=== PATIENT | female | born 1965 | race Caucasian/White ===

== ENCOUNTER → 2016-11-03 | Outpatient (REF) | payer OTHER ==
[~2016-11-03] MED LIST: ACET500C OR; ALENDRONATE PO; CALCCHW12 OR; ESTR625TA OR; FEROCON PO; FERR325T OR; NAPR500T OR; OMEP20TA7 OR; TRAM50TA2 OR; VITA100T OR; potassium PO; vitamin d-3 PO
[2016-11-03 17:18] LABS: PERCENT SATURATION 24.4 % (13.2-37.4)
== END ==
LOC: M LAB REF 16:33
PROVIDERS: ATTEND Internal Medicine
DX: D51.9 Vitamin B12 deficiency anemia, unspecified (principal); D50.9 Iron deficiency anemia, unspecified; Z98.84 Bariatric surgery status

== ENCOUNTER → 2016-11-17 | Outpatient (REF) | payer OTHER | LOC: M LAB REF 16:39 | PROVIDERS: ATTEND Surgery | DX: J02.9 Acute pharyngitis, unspecified (principal) ==

== ENCOUNTER 2018-01-15 14:25 | Inpatient (IN) | payer OTHER ==
[2018-01-15] MEDS: NS 1,000 ML IV ×2 (15:15→17:55)
[2018-01-15 15:27] LABS: BASO % 0.3 % (0.0-1.0); EOS # 0.2 10^3/uL (0.0-0.50); EOS % 1.8 % (0.0-3.0); HEMATOCRIT 42.1 % (36.0-47.0); IMMATURE GRANULOCYTE % 0.3 % (0-3.0); LYMPH # 1.8 10^3/uL (1.5-4.5); LYMPH % 18.5 % (24.0-44.0); MEAN CORPUSCULAR HEMOGLOBIN 31.3 pg (27.0-33.0); MEAN CORPUSCULAR HGB CONC 33.3 g/dl (32.0-36.5); MONO # 0.5 10^3/uL (0.0-0.8); MONO % 5.1 % (0.0-5.0); PLATELET COUNT, AUTOMATED 289 10^3/uL (150-450); RED BLOOD COUNT 4.48 10^6/uL (4.00-5.40); RED CELL DISTRIBUTION WIDTH 12.8 % (11.5-14.5); WHITE BLOOD COUNT 9.4 10^3/uL (4.0-10.0)
[2018-01-15] MEDS: MORPHINE 4 MG/ML 1ML VIAL/SYRINGE (J2270) IV ×3 (15:34→16:54)
[2018-01-15] MEDS: ONDANSETRON 4MG/2ML VIAL (J2405) IV (15:34)
[2018-01-15 15:38] LABS: INR 0.88; PARTIAL THROMBOPLASTIN TIME 29.1 SECONDS (25.4-37.6)
[2018-01-15 15:44] LABS: CONTROL LINE HCG INT CTR LINE PRESENT; HCG, SERUM QUALITATIVE NEGATIVE (NEGATIVE)
[2018-01-15 15:54] LABS: ALBUMIN 3.4 GM/DL (3.2-5.2); ALBUMIN/GLOBULIN RATIO 1.06 (1.00-1.93); ALKALINE PHOSPHATASE 52 U/L (45-117); ALT/SGPT 29 U/L (12-78); ANION GAP 10 MEQ/L (8-16); AST/SGOT 33 U/L (7-37); BILIRUBIN,DIRECT 0.1 MG/DL (0.0-0.2); BILIRUBIN,TOTAL 0.3 MG/DL (0.2-1.0); BLOOD UREA NITROGEN 23 MG/DL (7-18); CARBON DIOXIDE LEVEL 25 MEQ/L (21-32); CHLORIDE LEVEL 107 MEQ/L (98-107); CPK CREATINE PHOSPHOKINASE 50 U/L (26-192); CREATININE FOR GFR 0.65 MG/DL (0.55-1.30); GLOMERULAR FILTRATION RATE > 60.0 (>51); GLUCOSE, FASTING 113 MG/DL (70-100); LIPASE 833 U/L (73-393); POTASSIUM SERUM 4.1 MEQ/L (3.5-5.1); SODIUM LEVEL 142 MEQ/L (136-145); TOTAL PROTEIN 6.6 GM/DL (6.4-8.2); TROPONIN I < 0.02 NG/ML (< 0.10)
[2018-01-15 15:55] LABS: CK-MB VALUE MASS < 1.0 NG/ML (<3.6)
[2018-01-15] MEDS ORDERED: ISOVUE-370 76% 100ML VIAL (Q9967) As Ordered (15:57)
[2018-01-15] MEDS ORDERED: ASPIRIN 81 MG CHEW TABLET As Ordered (16:00)
[2018-01-15] MEDS: NITROGLYCERIN 0.4 MG SUBL TABLET SL (16:03)
[2018-01-15] MEDS: ASPIRIN 81 MG CHEW TABLET PO (16:04)
[2018-01-15] MEDS: LORazepam 2 MG/ML VIAL (J2060) IV (16:31)
[2018-01-15] MEDS: PIPERACILLIN/TAZOBACTAM SOD 3.375 GM in D5W MINI-BAG PLUS 50 ML IV ×2 (16:55→22:48)
[2018-01-15 18:11] LABS: LACTIC ACID SEPSIS PROTOCOL 1.3 MMOL/L (0.4-2.0)
[2018-01-15] MEDS: LR 1,000 ML IV (19:13)
[2018-01-15] MEDS: KETOROLAC 30 MG/ML VIAL (J1885) IV (19:22)
[2018-01-15] MEDS: HEPARIN SOD (PORCINE) 5000 UNITS/ML VIAL SC (21:33)
[2018-01-15] MEDS: PANTOPRAZOLE 40MG INJ (PROTONIX) (C9113) IV (21:33)
[2018-01-16] MEDS: KETOROLAC 30 MG/ML VIAL (J1885) IV ×3 (03:04→15:33)
[2018-01-16] MEDS: LR 1,000 ML IV ×3 (04:00→16:37)
[2018-01-16] MEDS: HEPARIN SOD (PORCINE) 5000 UNITS/ML VIAL SC ×3 (05:39→22:02)
[2018-01-16] MEDS: PIPERACILLIN/TAZOBACTAM SOD 3.375 GM in D5W MINI-BAG PLUS 50 ML IV ×4 (05:39→21:53)
[2018-01-16 06:20] LABS: HEMATOCRIT 36.2 % (36.0-47.0); MEAN CORPUSCULAR HEMOGLOBIN 31.7 pg (27.0-33.0); MEAN CORPUSCULAR HGB CONC 32.6 g/dl (32.0-36.5); MEAN CORPUSCULAR VOLUME 97.3 fl (80.0-96.0); PLATELET COUNT, AUTOMATED 224 10^3/uL (150-450); RED BLOOD COUNT 3.72 10^6/uL (4.00-5.40); RED CELL DISTRIBUTION WIDTH 13.1 % (11.5-14.5); WHITE BLOOD COUNT 6.9 10^3/uL (4.0-10.0)
[2018-01-16 06:43] LABS: HEMOGLOBIN 11.8 g/dl (12.0-15.5)
[2018-01-16 06:53] LABS: ANION GAP 6 MEQ/L (8-16); BLOOD UREA NITROGEN 18 MG/DL (7-18); CALCIUM LEVEL 7.7 MG/DL (8.5-10.1); CARBON DIOXIDE LEVEL 30 MEQ/L (21-32); CHLORIDE LEVEL 109 MEQ/L (98-107); CREATININE FOR GFR 0.62 MG/DL (0.55-1.30); GLOMERULAR FILTRATION RATE > 60.0 (>51); GLUCOSE, FASTING 104 MG/DL (70-100); MAGNESIUM LEVEL 1.9 MG/DL (1.8-2.4); POTASSIUM SERUM 4.4 MEQ/L (3.5-5.1); SODIUM LEVEL 145 MEQ/L (136-145)
[2018-01-16] MEDS: PANTOPRAZOLE 40MG INJ (PROTONIX) (C9113) IV ×2 (09:31→21:53)
[2018-01-16] MEDS: ONDANSETRON 4MG/2ML VIAL (J2405) IV (23:21)
[2018-01-16] MEDS: MORPHINE 4 MG/ML 1ML VIAL/SYRINGE (J2270) IV (23:21)
[2018-01-17] MEDS: LR 1,000 ML IV ×3 (04:00→18:56)
[2018-01-17] MEDS: ONDANSETRON 4MG/2ML VIAL (J2405) IV (05:06)
[2018-01-17] MEDS: MORPHINE 4 MG/ML 1ML VIAL/SYRINGE (J2270) IV (05:07)
[2018-01-17] MEDS: PIPERACILLIN/TAZOBACTAM SOD 3.375 GM in D5W MINI-BAG PLUS 50 ML IV ×4 (05:08→23:18)
[2018-01-17] MEDS: HEPARIN SOD (PORCINE) 5000 UNITS/ML VIAL SC ×3 (05:27→22:00)
[2018-01-17 06:12] LABS: HEMATOCRIT 35.2 % (36.0-47.0); HEMOGLOBIN 11.5 g/dl (12.0-15.5); MEAN CORPUSCULAR HEMOGLOBIN 31.6 pg (27.0-33.0); MEAN CORPUSCULAR HGB CONC 32.7 g/dl (32.0-36.5); MEAN CORPUSCULAR VOLUME 96.7 fl (80.0-96.0); PLATELET COUNT, AUTOMATED 203 10^3/uL (150-450); RED BLOOD COUNT 3.64 10^6/uL (4.00-5.40); RED CELL DISTRIBUTION WIDTH 12.9 % (11.5-14.5)
[2018-01-17 06:32] LABS: ANION GAP 9 MEQ/L (8-16); BLOOD UREA NITROGEN 17 MG/DL (7-18); CALCIUM LEVEL 7.9 MG/DL (8.5-10.1); CARBON DIOXIDE LEVEL 27 MEQ/L (21-32); CHLORIDE LEVEL 107 MEQ/L (98-107); CREATININE FOR GFR 0.51 MG/DL (0.55-1.30); GLOMERULAR FILTRATION RATE > 60.0 (>51); GLUCOSE, FASTING 71 MG/DL (70-100); MAGNESIUM LEVEL 1.8 MG/DL (1.8-2.4); POTASSIUM SERUM 3.6 MEQ/L (3.5-5.1); SODIUM LEVEL 143 MEQ/L (136-145)
[2018-01-17] MEDS: PANTOPRAZOLE 40MG INJ (PROTONIX) (C9113) IV ×2 (09:07→20:58)
[2018-01-17] MEDS: ACETAMINOPHEN TAB 650MG DOSE (2X325MG) PO (09:33)
[2018-01-17] MEDS: SUCRALFATE SUSP 1GM/10ML UD PO ×3 (11:17→23:18)
[2018-01-18] MEDS: PIPERACILLIN/TAZOBACTAM SOD 3.375 GM in D5W MINI-BAG PLUS 50 ML IV (06:40)
[2018-01-18] MEDS: HEPARIN SOD (PORCINE) 5000 UNITS/ML VIAL SC (06:45)
[2018-01-18] MEDS: SUCRALFATE SUSP 1GM/10ML UD PO (06:53)
[2018-01-18 07:27] LABS: HEMATOCRIT 35.7 % (36.0-47.0); HEMOGLOBIN 11.6 g/dl (12.0-15.5); MEAN CORPUSCULAR HEMOGLOBIN 30.6 pg (27.0-33.0); MEAN CORPUSCULAR HGB CONC 32.5 g/dl (32.0-36.5); MEAN CORPUSCULAR VOLUME 94.2 fl (80.0-96.0); PLATELET COUNT, AUTOMATED 242 10^3/uL (150-450); RED BLOOD COUNT 3.79 10^6/uL (4.00-5.40); RED CELL DISTRIBUTION WIDTH 12.3 % (11.5-14.5); WHITE BLOOD COUNT 3.7 10^3/uL (4.0-10.0)
[2018-01-18 07:49] LABS: ANION GAP 10 MEQ/L (8-16); BLOOD UREA NITROGEN 10 MG/DL (7-18); CALCIUM LEVEL 8.3 MG/DL (8.5-10.1); CARBON DIOXIDE LEVEL 25 MEQ/L (21-32); CHLORIDE LEVEL 109 MEQ/L (98-107); CREATININE FOR GFR 0.49 MG/DL (0.55-1.30); GLOMERULAR FILTRATION RATE > 60.0 (>51); GLUCOSE, FASTING 63 MG/DL (70-100); MAGNESIUM LEVEL 1.8 MG/DL (1.8-2.4); POTASSIUM SERUM 3.9 MEQ/L (3.5-5.1); SODIUM LEVEL 144 MEQ/L (136-145)
== END 2018-01-18 10:30 | disposition home or self-care (01) | DRG 392 ==
LOC: M ED 14:25 → M ED INP 18:57 → M PED 20:35
DX: K22.5 Diverticulum of esophagus, acquired (principal); N20.0 Calculus of kidney; F32.9 Major depressive disorder, single episode, unspecified; M54.2 Cervicalgia; Z98.84 Bariatric surgery status

== ENCOUNTER 2018-02-24 11:37 | Day surgery (SDC) | payer OTHER ==
[2018-02-24] MEDS ORDERED: NS 1,000 ML IV (12:30)
[2018-02-24] MEDS ORDERED: LIDOCAINE 2% INJ 100 MG/5 ML SDV (FOR ANES.) As Ordered (12:31)
[2018-02-24] MEDS ORDERED: PROPOFOL 500 MG/50 ML VIAL As Ordered (12:31)
[2018-02-24] MEDS ORDERED: fentaNYL 100 MCG/2 ML INJECTION (J3010) As Ordered (12:31)
== END 2018-02-24 13:02 | disposition home or self-care (01) ==
LOC: M OPP 11:37
DX: K25.1 Acute gastric ulcer with perforation (principal); Z98.0 Intestinal bypass and anastomosis status; Z87.11 Personal history of peptic ulcer disease; I95.9 Hypotension, unspecified; Z98.84 Bariatric surgery status; D64.9 Anemia, unspecified; M19.90 Unspecified osteoarthritis, unspecified site; M25.78 Osteophyte, vertebrae; M54.89 Other dorsalgia; M54.2 Cervicalgia; F41.9 Anxiety disorder, unspecified; F32.9 Major depressive disorder, single episode, unspecified; K21.9 Gastro-esophageal reflux disease without esophagitis; R51 Headache; N83.209 Unspecified ovarian cyst, unspecified side; Z87.442 Personal history of urinary calculi; Z86.39 Personal history of other endocrine, nutritional and metabolic disease; Z79.899 Other long term (current) drug therapy; Z80.0 Family history of malignant neoplasm of digestive organs; Z80.8 Family history of malignant neoplasm of other organs or systems; Z80.1 Family history of malignant neoplasm of trachea, bronchus and lung
CPT/HCPCS: 43239

== ENCOUNTER → 2018-03-01 | Outpatient (REF) | payer OTHER ==
[2018-03-01 13:39] LABS: VITAMIN B12 LEVEL 524 PG/ML (247-911)
[2018-03-01 15:26] LABS: FERRITIN 94 NG/ML (8-252); IRON (FE) 85 UG/DL (50-170); PERCENT SATURATION 24.4 % (13.2-45.0); TOTAL IRON BINDING CAPACITY 348 UG/DL (250-450)
== END ==
LOC: M LAB REF 12:16
DX: D50.9 Iron deficiency anemia, unspecified (principal); D51.9 Vitamin B12 deficiency anemia, unspecified

== ENCOUNTER → 2018-08-17 | Outpatient (REF) | payer OTHER ==
[~2018-08-17] MED LIST changes: +AMIT25TA PO; +BAYETAB2 PO; +CALCTAB68 PO; +DULO30CA PO; +ESTR2TAB2 PO; +FEROCAP3 PO; +GABA-843 PO; +IRON27TA2 PO; +MIDO5TA PO; +MOBI4TAB PO; +MULTCAP PO; +OMEP40CA2 PO; +POTA99TA PO; +PREG100CA PO; +SUCR1TA PO; +TYLE500T78 PO; +VITA10002 PO; +VITA100066 PO; +VITA250L PO
[2018-08-18 14:53] LABS: ANTINUCLEAR ANTIBODIES DIRECT Negative (Negative)
== END ==
LOC: M LAB REF 12:28
PROVIDERS: ATTEND Internal Medicine
DX: M25.50 Pain in unspecified joint (principal)

== ENCOUNTER → 2019-01-07 | Outpatient (CLI) | payer OTHER ==
[~2019-01-07] MED LIST changes: -DULO30CA PO; +DULO30CA9 PO
--- NOTE | 2019-01-07 14:31 | REP ---
Whole body radionuclide bone scan: The studies performed after intravenous infusion of MDP radiolabeled with 20.2 mCi of technetium 99m. Whole body anterior posterior images are performed. Additionally magnified images of the ribs and pelvis are performed and oblique projections and lateral views of the calvarium are performed and oblique projections. Lateral views of the lower extremities are performed. In addition, a posterior view of the lumbar spine, sacrum and coccyx is performed after bladder emptying. There is focal increased uptake in the tarsal ossicles bilaterally, likely degenerative. Radiotracer distribution is otherwise unremarkable. No other focal areas of increased uptake are identified. There is no evidence of a focal increased uptake in the sacrum or coccyx. Impression: No evidence of increased uptake in the sacrum or coccyx. Increased uptake in the tarsal ossicles bilaterally, likely degenerative. Electronically Signed by Ronny Foley MD 01/07/2019 02:23 P
== END ==
LOC: M RAD 09:21
PROVIDERS: ATTEND Orthopaedic Surgery Orthopaedic Surgery of the Spine
DX: Z13.820 Encounter for screening for osteoporosis (principal)
CPT/HCPCS: 78306; A9503

== ENCOUNTER → 2019-01-14 | Outpatient (REF) | payer OTHER ==
[2019-01-14 18:03] LABS: APPEARANCE, URINE HAZY (CLEAR); BACTERIA, URINE AUTO NEGATIVE (NEGATIVE); BILIRUBIN, URINE AUTO NEGATIVE (NEGATIVE); BLOOD, URINE BLOOD 1+ (NEGATIVE); CALCIUM OXALATE CRYSTALS LARGE; COLOR, URINE YELLOW (YELLOW); GLUCOSE, URINE (UA) AUTO NEGATIVE (NEGATIVE); KETONE, URINE AUTO NEGATIVE (NEGATIVE); LEUKOCYTE ESTERASE, URINE AUTO NEGATIVE (NEGATIVE); MUCUS, URINE SMALL (NEGATIVE); NITRITE, URINE AUTO NEGATIVE (NEGATIVE); PROTEIN, URINE AUTO NEGATIVE (NEGATIVE); RBC, URINE AUTO 9 /HPF (0-3); SQUAMOUS EPITHELIAL CELL UR AU 0 /HPF (0-6); UROBILINOGEN, URINE AUTO 0.2 mg/dL (0.0-2.0); WBC, URINE AUTO 0 /HPF (0-3)
== END ==
LOC: M LAB REF 16:23
PROVIDERS: ATTEND Internal Medicine
DX: Z01.818 Encounter for other preprocedural examination (principal)

== ENCOUNTER → 2019-02-24 | Outpatient (REF) | payer OTHER ==
[~2019-02-24] MED LIST changes: +CYAN100049 PO; -VITA10002 PO
[2019-02-24 22:19] LABS: BASO # 0.1 10^3/uL (0.0-0.2); EOS # 0.1 10^3/uL (0.0-0.50); EOS % 2.1 % (0.0-3.0); HEMATOCRIT 40.6 % (36.0-47.0); HEMOGLOBIN 13.3 g/dl (12.0-15.5); LYMPH # 1.4 10^3/uL (1.5-4.5); MEAN CORPUSCULAR HEMOGLOBIN 32.8 pg (27.0-33.0); MEAN CORPUSCULAR HGB CONC 32.8 g/dl (32.0-36.5); MONO # 0.6 10^3/uL (0.0-0.8); MONO % 11.3 % (0.0-5.0); NEUTROPHILS # 2.7 10^3/uL (1.8-7.7); NEUTROPHILS % 55.8 % (36.0-66.0); PLATELET COUNT, AUTOMATED 280 10^3/uL (150-450); RED BLOOD COUNT 4.06 10^6/uL (4.00-5.40); WHITE BLOOD COUNT 4.9 10^3/uL (4.0-10.0)
[2019-02-24 22:22] LABS: MONO SCRN NEGATIVE (NEGATIVE)
[2019-02-24 22:40] LABS: THYROID STIMULATING HORMONE 0.742 uIU/ML (0.358-3.740); TOTAL 25(OH) VITAMIN D 32.1 NG/ML (30.0-100.0)
[2019-02-27 00:06] LABS: Lyme Disease IgG/IgM Antibodie <0.91 ISR (0.00-0.90); Lyme Disease IgM Ab Quantitati <0.80 index (0.00-0.79)
== END ==
LOC: M LAB REF 10:04
PROVIDERS: ATTEND Physician Assistant
DX: R53.83 Other fatigue (principal)

== ENCOUNTER → 2020-01-20 | Outpatient (CLI) | payer OTHER ==
[~2020-01-20] MED LIST changes: -OMEP40CA2 PO; +OMEP40CA97 PO
[2020-01-20 09:33] LABS: BASO # 0.1 10^3/uL (0.0-0.2); BASO % 1.2 % (0.0-1.0); EOS # 0.2 10^3/uL (0.0-0.5); HEMATOCRIT 35.2 % (36.0-47.0); HEMOGLOBIN 10.6 g/dl (12.0-15.5); LYMPH # 1.9 10^3/uL (1.5-5.0); MEAN CORPUSCULAR HEMOGLOBIN 25.4 pg (27.0-33.0); MEAN CORPUSCULAR HGB CONC 30.1 g/dl (32.0-36.5); MEAN CORPUSCULAR VOLUME 84.4 fl (80.0-96.0); MONO # 0.8 10^3/uL (0.0-0.8); NEUTROPHILS # 2.7 10^3/uL (1.5-8.5); NEUTROPHILS % 47.3 % (36.0-66.0); PLATELET COUNT, AUTOMATED 371 10^3/uL (150-450); RED BLOOD COUNT 4.17 10^6/uL (4.00-5.40); WHITE BLOOD COUNT 5.7 10^3/uL (4.0-10.0)
[2020-01-20 10:16] LABS: ALBUMIN 3.2 GM/DL (3.2-5.2); ALT/SGPT 31 U/L (12-78); BILIRUBIN,DIRECT < 0.1 MG/DL (0.0-0.2); BILIRUBIN,TOTAL 0.3 MG/DL (0.2-1.0); BLOOD UREA NITROGEN 23 MG/DL (7-18); CALCIUM LEVEL 8.9 MG/DL (8.5-10.1); CARBON DIOXIDE LEVEL 29 MEQ/L (21-32); CHLORIDE LEVEL 111 MEQ/L (98-107); CHOLESTEROL LEVEL 188 MG/DL (<200); CHOLESTEROL RISK RATIO 2.292 (<5); CREATININE FOR GFR 0.51 MG/DL (0.55-1.30); FOLATE 16.7 NG/ML; GLOMERULAR FILTRATION RATE > 60.0 (>51); GLUCOSE, FASTING 80 MG/DL (70-100); HDL CHOLESTEROL 82 MG/DL (>40); IRON (FE) 33 UG/DL (50-170); LDL CHOLESTEROL 92 MG/DL (<100); MAGNESIUM LEVEL 2.1 MG/DL (1.8-2.4); NON-HDL-C 106 MG/DL; POTASSIUM SERUM 4.2 MEQ/L (3.5-5.1); SODIUM LEVEL 143 MEQ/L (136-145); TRIGLYCERIDES LEVEL 69 MG/DL (<150); VITAMIN B12 LEVEL 719 PG/ML
[2020-01-20 11:19] LABS: HEMOGLOBIN A1c 5.2 %
== END ==
LOC: M LAB 08:48
PROVIDERS: ATTEND Physician Assistant
DX: Z98.84 Bariatric surgery status (principal)

== ENCOUNTER → 2020-04-22 | Outpatient (CLI) | payer OTHER, BC ==
[2020-04-22 12:29] LABS: BASO # 0.1 10^3/uL (0.0-0.2); BASO % 1.3 % (0.0-1.0); EOS # 0.2 10^3/uL (0.0-0.5); EOS % 4.8 % (0.0-3.0); HEMATOCRIT 35.1 % (36.0-47.0); HEMOGLOBIN 10.8 g/dl (12.0-15.5); LYMPH # 1.3 10^3/uL (1.5-5.0); LYMPH % 33.4 % (24.0-44.0); MEAN CORPUSCULAR HEMOGLOBIN 27.5 pg (27.0-33.0); MEAN CORPUSCULAR HGB CONC 30.8 g/dl (32.0-36.5); MEAN CORPUSCULAR VOLUME 89.3 fl (80.0-96.0); MONO # 0.5 10^3/uL (0.0-0.8); MONO % 11.6 % (0.0-5.0); NEUTROPHILS # 1.9 10^3/uL (1.5-8.5); NEUTROPHILS % 48.6 % (36.0-66.0); PLATELET COUNT, AUTOMATED 323 10^3/uL (150-450); RED BLOOD COUNT 3.93 10^6/uL (4.00-5.40)
[2020-04-22 12:41] LABS: APPEARANCE, URINE CLEAR (CLEAR); BACTERIA, URINE AUTO NEGATIVE (NEGATIVE); BILIRUBIN, URINE AUTO NEGATIVE (NEGATIVE); BLOOD, URINE BLOOD NEGATIVE (NEGATIVE); COLOR, URINE YELLOW (YELLOW); GLUCOSE, URINE (UA) AUTO NEGATIVE (NEGATIVE); KETONE, URINE AUTO NEGATIVE (NEGATIVE); LEUKOCYTE ESTERASE, URINE AUTO NEGATIVE (NEGATIVE); MUCUS, URINE SMALL (NEGATIVE); NITRITE, URINE AUTO NEGATIVE (NEGATIVE); PROTEIN, URINE AUTO NEGATIVE (NEGATIVE); RBC, URINE AUTO 0 /HPF (0-3); SQUAMOUS EPITHELIAL CELL UR AU 2 /HPF (0-6); UROBILINOGEN, URINE AUTO 0.2 mg/dL (0.0-2.0); WBC, URINE AUTO 0 /HPF (0-3)
[2020-04-22 12:44] LABS: BLOOD UREA NITROGEN 22 MG/DL (7-18); CALCIUM LEVEL 8.9 MG/DL (8.5-10.1); CARBON DIOXIDE LEVEL 28 MEQ/L (21-32); CHLORIDE LEVEL 109 MEQ/L (98-107); CREATININE FOR GFR 0.53 MG/DL (0.55-1.30); FERRITIN 11 NG/ML (8-252); GLOMERULAR FILTRATION RATE > 60.0 (>51); GLUCOSE, FASTING 92 MG/DL (70-100); IRON (FE) 36 UG/DL (50-170); PERCENT SATURATION 9.1 % (13.2-45.0); POTASSIUM SERUM 4.2 MEQ/L (3.5-5.1); SODIUM LEVEL 140 MEQ/L (136-145); TOTAL IRON BINDING CAPACITY 397 UG/DL (250-450)
[2020-04-23 11:49] LABS: TOTAL 25(OH) VITAMIN D 80.2 NG/ML (30.0-100.0); VITAMIN B12 LEVEL > 2000 PG/ML
[2020-04-23 11:50] LABS: FOLATE > 24.0 NG/ML
== END ==
LOC: M WUC 10:08
PROVIDERS: ATTEND Physician Assistant
DX: Z01.812 Encounter for preprocedural laboratory examination (principal); Z98.84 Bariatric surgery status

== ENCOUNTER 2020-06-27 07:42 | Outpatient (CLI) | payer OTHER ==
[~2020-06-27] VITALS: Ht 154.9 cm; Wt 72.7 kg
[2020-06-27 08:00] VITALS: BP 112/74
[2020-06-27] MEDS ORDERED: FERRIC CARBOXYMALTOSE INJ 750 MG in NS 250 ML IV ONE (08:00)
[2020-06-27 10:10] VITALS: BP 119/72
== END 2020-06-27 10:10 | disposition home or self-care (01) ==
LOC: M INFU 07:42
PROVIDERS: ATTEND Physician Assistant
DX: D50.9 Iron deficiency anemia, unspecified (principal); K21.00 Gastro-esophageal reflux disease with esophagitis, without bleeding; Z98.84 Bariatric surgery status
CPT/HCPCS: 96365; J1439

== ENCOUNTER 2020-07-04 07:52 | Outpatient (CLI) | payer OTHER ==
[~2020-07-04] VITALS: Ht 180.3 cm; Wt 72.7 kg
[2020-07-04 08:00] VITALS: BP 118/56
[2020-07-04] MEDS ORDERED: FERRIC CARBOXYMALTOSE INJ 750 MG in NS 250 ML IV ONE (08:00)
[2020-07-04 09:00] VITALS: BP 113/58
[2020-07-04 10:10] VITALS: BP 136/64
== END 2020-07-04 11:15 | disposition home or self-care (01) ==
LOC: M INFU 07:52
PROVIDERS: ATTEND Physician Assistant
DX: D50.9 Iron deficiency anemia, unspecified (principal); K21.00 Gastro-esophageal reflux disease with esophagitis, without bleeding; Z98.84 Bariatric surgery status
CPT/HCPCS: 96365; 96366; J1439

== ENCOUNTER → 2020-09-05 | Outpatient (CLI) | payer OTHER ==
[~2020-09-05] MED LIST changes: -AMIT25TA PO; +AMIT25TA17 PO; +GABA-282 PO; -GABA-843 PO
[2020-09-05 12:04] LABS: BASO # 0.1 10^3/uL (0.0-0.2); BASO % 0.5 % (0.0-1.0); EOS # 0.2 10^3/uL (0.0-0.5); EOS % 1.9 % (0.0-3.0); HEMATOCRIT 41.5 % (36.0-47.0); LYMPH # 1.3 10^3/uL (1.5-5.0); LYMPH % 11.6 % (24.0-44.0); MEAN CORPUSCULAR HEMOGLOBIN 30.2 pg (27.0-33.0); MEAN CORPUSCULAR HGB CONC 31.3 g/dl (32.0-36.5); MEAN CORPUSCULAR VOLUME 96.5 fl (80.0-96.0); MONO % 8.7 % (2.0-8.0); NEUTROPHILS # 8.7 10^3/uL (1.5-8.5); NEUTROPHILS % 76.8 % (36.0-66.0); PLATELET COUNT, AUTOMATED 231 10^3/uL (150-450); WHITE BLOOD COUNT 11.3 10^3/uL (4.0-10.0)
[2020-09-05 12:32] LABS: ALBUMIN 3.6 GM/DL (3.2-5.2); ALT/SGPT 39 U/L (12-78); BILIRUBIN,TOTAL 0.4 MG/DL (0.2-1.0); BLOOD UREA NITROGEN 26 MG/DL (7-18); CALCIUM LEVEL 9.4 MG/DL (8.5-10.1); CARBON DIOXIDE LEVEL 29 MEQ/L (21-32); CHLORIDE LEVEL 108 MEQ/L (98-107); CREATININE FOR GFR 0.54 MG/DL (0.55-1.30); FERRITIN 276 NG/ML (8-252); GLOMERULAR FILTRATION RATE > 60.0 (>51); GLUCOSE, FASTING 79 MG/DL (70-100); IRON (FE) 76 UG/DL (50-170); PERCENT SATURATION 24.1 % (13.2-45.0); POTASSIUM SERUM 4.2 MEQ/L (3.5-5.1); SODIUM LEVEL 142 MEQ/L (136-145); TOTAL IRON BINDING CAPACITY 315 UG/DL (250-450); TOTAL PROTEIN 6.4 GM/DL (6.4-8.2)
[2020-09-05 12:35] LABS: VITAMIN B12 LEVEL > 2000 PG/ML (247-911)
[2020-09-05 12:36] LABS: FOLATE > 24.0 NG/ML (>5.4)
== END ==
LOC: M LAB 11:19
PROVIDERS: ATTEND Physician Assistant
DX: D64.9 Anemia, unspecified (principal)

== ENCOUNTER → 2021-09-18 | Outpatient (CLI) | payer OTHER ==
[~2021-09-18] MED LIST changes: -ESTR2TAB2 PO; +ESTR2TAB3 PO; +OMEP40CA4 PO; -OMEP40CA97 PO
[2021-09-18 11:07] LABS: BASO # 0.1 10^3/uL (0.0-0.2); BASO % 0.9 % (0.0-1.0); EOS # 0.1 10^3/uL (0.0-0.5); EOS % 1.4 % (0.0-3.0); HEMATOCRIT 32.2 % (36.0-47.0); HEMOGLOBIN 9.5 g/dl (12.0-15.5); LYMPH # 1.1 10^3/uL (1.5-5.0); LYMPH % 13.2 % (24.0-44.0); MEAN CORPUSCULAR HEMOGLOBIN 24.5 pg (27.0-33.0); MEAN CORPUSCULAR HGB CONC 29.5 g/dl (32.0-36.5); MONO # 0.7 10^3/uL (0.0-0.8); MONO % 8.4 % (2.0-8.0); NEUTROPHILS # 6.2 10^3/uL (1.5-8.5); NEUTROPHILS % 75.6 % (36.0-66.0); PLATELET COUNT, AUTOMATED 544 10^3/uL (150-450); RED BLOOD COUNT 3.88 10^6/uL (4.00-5.40); WHITE BLOOD COUNT 8.1 10^3/uL (4.0-10.0)
[2021-09-18 12:42] LABS: PERCENT SATURATION 3.1 % (13.2-45.0)
== END ==
LOC: M PLALAB 08:28
PROVIDERS: ATTEND Family Medicine
DX: D64.9 Anemia, unspecified (principal); Z98.84 Bariatric surgery status

== ENCOUNTER → 2021-09-18 | Outpatient (CLI) | payer OTHER | LOC: M WHC 07:25 | PROVIDERS: ATTEND Family Medicine | DX: Z12.31 Encounter for screening mammogram for malignant neoplasm of breast (principal); Z13.820 Encounter for screening for osteoporosis; M85.89 Other specified disorders of bone density and structure, multiple sites ==

== ENCOUNTER 2021-09-30 08:57 | Outpatient (CLI) | payer OTHER ==
[~2021-09-30] VITALS: Ht 154.9 cm; Wt 73.0 kg
[2021-09-30] MEDS ORDERED: IRON SUCROSE 500 MG in NS 250 ML OVER 4 HRS IV ONE (09:00)
[2021-09-30 09:10] VITALS: BP 143/62
[2021-09-30 10:00] VITALS: BP 118/65
[2021-09-30 11:00] VITALS: BP 124/74
[2021-09-30 11:54] VITALS: BP 131/62
[2021-09-30 13:30] VITALS: BP 119/67
== END 2021-09-30 13:35 | disposition home or self-care (01) ==
LOC: M INFU 08:57
PROVIDERS: ATTEND Family Medicine
DX: Z98.84 Bariatric surgery status (principal)
CPT/HCPCS: 96365; 96366; J1756

== ENCOUNTER → 2021-10-05 | Outpatient (CLI) | payer OTHER ==
[2021-10-05 14:59] LABS: ALBUMIN 3.7 GM/DL (3.2-5.2); ALT/SGPT 31 U/L (12-78); BILIRUBIN,DIRECT < 0.1 MG/DL (0.0-0.2); BILIRUBIN,TOTAL 0.1 MG/DL (0.2-1.0); BLOOD UREA NITROGEN 20 MG/DL (7-18); CALCIUM LEVEL 8.9 MG/DL (8.5-10.1); CARBON DIOXIDE LEVEL 26 MEQ/L (21-32); CHLORIDE LEVEL 109 MEQ/L (98-107); GLOMERULAR FILTRATION RATE > 60.0 (>51); GLUCOSE, FASTING 118 MG/DL (70-100); LIPASE 160 U/L (73-393); POTASSIUM SERUM 4.2 MEQ/L (3.5-5.1); SODIUM LEVEL 142 MEQ/L (136-145); TOTAL PROTEIN 6.5 GM/DL (6.4-8.2)
== END ==
LOC: M LAB 14:04
PROVIDERS: ATTEND Physician Assistant
DX: R10.10 Upper abdominal pain, unspecified (principal)

== ENCOUNTER → 2021-10-07 | Outpatient (CLI) | payer OTHER ==
[~2021-10-07] MED LIST changes: +GASTROGRAFIN SOLUTION 30ML (Q9963) As Ordered ONE; +ISOVUE-370 76% 100ML VIAL As Ordered ONE
== END ==
LOC: M RAD 08:44
PROVIDERS: ATTEND Physician Assistant
DX: R10.10 Upper abdominal pain, unspecified (principal); K80.20 Calculus of gallbladder without cholecystitis without obstruction; Z98.84 Bariatric surgery status
CPT/HCPCS: 74177; Q9963; Q9967

== ENCOUNTER → 2022-02-26 | Outpatient (CLI) | payer OTHER ==
[~2022-02-26] MED LIST changes: -GASTROGRAFIN SOLUTION 30ML (Q9963) As Ordered ONE; -ISOVUE-370 76% 100ML VIAL As Ordered ONE
[2022-02-26 10:12] LABS: BASO # 0.1 10^3/uL (0.0-0.2); BASO % 1.9 % (0.0-1.0); EOS # 0.4 10^3/uL (0.0-0.5); EOS % 7.8 % (0.0-3.0); HEMATOCRIT 38.4 % (36.0-47.0); HEMOGLOBIN 11.7 g/dl (12.0-15.5); LYMPH # 1.7 10^3/uL (1.5-5.0); LYMPH % 37.2 % (24.0-44.0); MEAN CORPUSCULAR HEMOGLOBIN 26.1 pg (27.0-33.0); MEAN CORPUSCULAR HGB CONC 30.5 g/dl (32.0-36.5); MEAN CORPUSCULAR VOLUME 85.5 fl (80.0-96.0); MONO # 0.4 10^3/uL (0.0-0.8); MONO % 9.5 % (2.0-8.0); NEUTROPHILS % 43.4 % (36.0-66.0); PLATELET COUNT, AUTOMATED 341 10^3/uL (150-450); RED BLOOD COUNT 4.49 10^6/uL (4.00-5.40); WHITE BLOOD COUNT 4.6 10^3/uL (4.0-10.0)
[2022-02-26 10:52] LABS: ALBUMIN 3.3 GM/DL (3.2-5.2); ALT/SGPT 30 U/L (12-78); BILIRUBIN,TOTAL 0.1 MG/DL (0.2-1.0); BLOOD UREA NITROGEN 16 MG/DL (7-18); CALCIUM LEVEL 8.8 MG/DL (8.5-10.1); CARBON DIOXIDE LEVEL 29 MEQ/L (21-32); CHLORIDE LEVEL 110 MEQ/L (98-107); CREATININE FOR GFR 0.55 MG/DL (0.55-1.30); FERRITIN 30 NG/ML (8-252); FREE T4 0.86 NG/DL (0.76-1.46); GLOMERULAR FILTRATION RATE > 60.0 (>51); GLUCOSE, FASTING 87 MG/DL (70-100); IRON (FE) 37 UG/DL (50-170); PERCENT SATURATION 9.5 % (13.2-45.0); POTASSIUM SERUM 4.4 MEQ/L (3.5-5.1); SODIUM LEVEL 142 MEQ/L (136-145); TOTAL IRON BINDING CAPACITY 389 UG/DL (250-450); TOTAL PROTEIN 6.2 GM/DL (6.4-8.2)
[2022-02-26 11:29] LABS: VITAMIN B12 LEVEL 511 PG/ML
[2022-02-26 11:30] LABS: FOLATE 18.8 NG/ML
== END ==
LOC: M LAB 08:46
PROVIDERS: ATTEND Family Medicine
DX: D64.9 Anemia, unspecified (principal)

== ENCOUNTER 2022-03-18 07:00 | Outpatient (RCR) | payer OTHER | END 2022-03-19 | LOC: M PT 07:00 | DX: M76.01 Gluteal tendinitis, right hip (principal) ==

== ENCOUNTER 2022-03-26 16:45 | Outpatient (RCR) | payer OTHER | END 2022-04-18 | LOC: M PT 16:45 | DX: M76.01 Gluteal tendinitis, right hip (principal) ==

== ENCOUNTER → 2022-05-14 | Outpatient (CLI) | payer OTHER ==
[~2022-05-14] MED LIST changes: +GASTROGRAFIN SOLUTION 30ML (Q9963) As Ordered ONE; +ISOVUE-370 76% 100ML VIAL As Ordered ONE
== END ==
LOC: M RAD 07:36
PROVIDERS: ATTEND Physician Assistant
DX: R68.81 Early satiety (principal); Z98.84 Bariatric surgery status; K80.20 Calculus of gallbladder without cholecystitis without obstruction
CPT/HCPCS: 74177; Q9963; Q9967

== ENCOUNTER → 2022-06-02 | Outpatient (CLI) | payer OTHER ==
[~2022-06-02] MED LIST changes: +E-Z-GAS II EFFERVESCENT PACKET (SODIUM BICARB./CITRIC ACID/SIMETHICONE) As Ordered ONE; +E-Z-HD 98% w/w 340GM SUSP BTL As Ordered ONE; +E-Z-PAQUE 96% w/w SUSP 176GM BTL As Ordered ONE; -GASTROGRAFIN SOLUTION 30ML (Q9963) As Ordered ONE; -ISOVUE-370 76% 100ML VIAL As Ordered ONE
== END ==
LOC: M RAD 08:16
PROVIDERS: ATTEND Surgery
DX: R10.13 Epigastric pain (principal); Z98.84 Bariatric surgery status

== ENCOUNTER → 2022-09-08 | Outpatient (CLI) | payer OTHER ==
[~2022-09-08] MED LIST changes: +CALC500C16 PO; -E-Z-GAS II EFFERVESCENT PACKET (SODIUM BICARB./CITRIC ACID/SIMETHICONE) As Ordered ONE; -E-Z-HD 98% w/w 340GM SUSP BTL As Ordered ONE; -E-Z-PAQUE 96% w/w SUSP 176GM BTL As Ordered ONE; +EXCETAB44 PO; +ORPH100T PO; +PANT40TA29 PO; +TRAM50TA2 PO; +VITA500T41 PO; +VITMTA PO
== END ==
LOC: M LABSMTC 07:47
PROVIDERS: ATTEND Anesthesiology
DX: Z01.812 Encounter for preprocedural laboratory examination (principal); Z11.52 Encounter for screening for COVID-19

== ENCOUNTER 2022-09-10 06:35 | Day surgery (SDC) | payer OTHER ==
[~2022-09-10] VITALS: Ht 156.2 cm; Wt 58.1 kg
[~2022-09-10 06:35] MED LIST changes: +NS 1,000 ML IV ONE
[2022-09-10] MEDS ORDERED: LIDOCAINE 2% 100MG/5ML SDV (FOR ANES.) As Ordered ONE (07:37)
[2022-09-10] MEDS ORDERED: propofoL 200 MG/20 ML VIAL As Ordered ONE (07:38)
[2022-09-10 07:55] VITALS: BP 138/86
== END 2022-09-10 08:06 | disposition home or self-care (01) ==
LOC: M OPP 06:35
PROVIDERS: ATTEND Surgery
DX: K25.4 Chronic or unspecified gastric ulcer with hemorrhage (principal); R10.13 Epigastric pain; R00.1 Bradycardia, unspecified; D50.9 Iron deficiency anemia, unspecified; Z79.1 Long term (current) use of non-steroidal anti-inflammatories (NSAID); Z79.891 Long term (current) use of opiate analgesic; Z79.899 Other long term (current) drug therapy; Z87.442 Personal history of urinary calculi; Z98.84 Bariatric surgery status

== ENCOUNTER → 2023-01-16 | Outpatient (CLI) | payer OTHER ==
[~2023-01-16] MED LIST changes: -NS 1,000 ML IV ONE; -ORPH100T PO; +ORPH1TAB6 PO
== END ==
LOC: M WHC 10:12
PROVIDERS: ATTEND Family Medicine
DX: Z12.31 Encounter for screening mammogram for malignant neoplasm of breast (principal)

== ENCOUNTER 2023-01-28 08:56 | Outpatient (CLI) | payer OTHER ==
[~2023-01-28] VITALS: Ht 154.9 cm; Wt 60.5 kg
[2023-01-28 09:13] VITALS: BP 125/70; O2SAT 94
[2023-01-28] MEDS ORDERED: FERRIC CARBOXYMALTOSE INJ 750 MG in NS 250 ML (>50kg) IV ONE ×3 (09:30)
[2023-01-28 10:39] VITALS: BP 127/63; O2SAT 92
== END 2023-01-29 10:40 | disposition home or self-care (01) ==
LOC: M INFU 08:56
PROVIDERS: ATTEND Physician Assistant
DX: D50.9 Iron deficiency anemia, unspecified (principal)
CPT/HCPCS: 96365; J1439

== ENCOUNTER → 2023-04-27 | Outpatient (REF) | payer OTHER ==
[~2023-04-27] MED LIST changes: -AMIT25TA17 PO; +AMIT25TA19 PO
== END ==
LOC: M LAB REF 15:49
PROVIDERS: ATTEND Surgery
DX: L72.11 Pilar cyst (principal)

== ENCOUNTER → 2023-06-02 | Outpatient (CLI) | payer OTHER ==
[~2023-06-02] MED LIST changes: +BARIUM SULFATE 700 MG TABLET (E-Z-DISK) As Ordered ONE; +E-Z-PAQUE 96% w/w SUSP 176GM BTL As Ordered ONE; +VARIBAR NECTAR 40% w/v 240ML SUSP BTL As Ordered ONE; +VARIBAR PUDDING 40% w/v 230ML TUBE As Ordered ONE
== END ==
LOC: M RAD 10:45
PROVIDERS: ATTEND Surgery
DX: R47.02 Dysphasia (principal)

== ENCOUNTER → 2024-08-08 | Outpatient (CLI) | payer OTHER ==
[~2024-08-08] MED LIST changes: +ACET-1599 PO; -BARIUM SULFATE 700 MG TABLET (E-Z-DISK) As Ordered ONE; -E-Z-PAQUE 96% w/w SUSP 176GM BTL As Ordered ONE; -EXCETAB44 PO; +GABA-1172 PO; -GABA-282 PO; -VARIBAR NECTAR 40% w/v 240ML SUSP BTL As Ordered ONE; -VARIBAR PUDDING 40% w/v 230ML TUBE As Ordered ONE
== END ==
LOC: M WHC 08:24
PROVIDERS: ATTEND Physician Assistant
DX: Z13.820 Encounter for screening for osteoporosis (principal); Z12.31 Encounter for screening mammogram for malignant neoplasm of breast; M85.89 Other specified disorders of bone density and structure, multiple sites

== ENCOUNTER 2024-09-22 11:03 | Inpatient (IN) | payer OTHER ==
[~2024-09-22] VITALS: Ht 154.9 cm; Wt 79.7 kg
[2024-09-22 12:40] LABS: BASO % 0.2 % (0.0-1.0); HEMATOCRIT 41.4 % (36.0-47.0); HEMOGLOBIN 13.4 g/dl (12.0-15.5); LYMPH # 0.5 10^3/uL (1.5-5.0); LYMPH % 3.7 % (24.0-44.0); MEAN CORPUSCULAR HEMOGLOBIN 30.5 pg (27.0-33.0); MEAN CORPUSCULAR HGB CONC 32.4 g/dl (32.0-36.5); MEAN CORPUSCULAR VOLUME 94.1 fl (80.0-96.0); MONO # 1.1 10^3/uL (0.0-0.8); MONO % 8.8 % (2.0-8.0); NEUTROPHILS # 10.9 10^3/uL (1.5-8.5); NEUTROPHILS % 86.7 % (36.0-66.0); PLATELET COUNT, AUTOMATED 235 10^3/uL (150-450); WHITE BLOOD COUNT 12.6 10^3/uL (4.0-10.0)
[2024-09-22 12:56] LABS: INR 0.99; PARTIAL THROMBOPLASTIN TIME 28.1 SECONDS (24.8-34.2); PROTHROMBIN TIME 13.4 SECONDS (12.5-14.5)
[2024-09-22 13:03] LABS: ALBUMIN 3.3 G/DL (3.2-5.2); ALKALINE PHOSPHATASE 73 U/L (35-104); ALT/SGPT 364 U/L (7.0-40); AMYLASE 103 U/L (30-118); AST/SGOT 612 U/L (<34); BILIRUBIN,DIRECT 0.1 MG/DL (<0.4); BILIRUBIN,TOTAL 0.3 MG/DL (0.3-1.2); BLOOD UREA NITROGEN 15 MG/DL (9-23); C REACTIVE PROTEIN QUANTITATIV 11.76 MG/DL (<1.0); CALCIUM LEVEL 8.5 MG/DL (8.5-10.1); CARBON DIOXIDE LEVEL 26 MMOL/L (20-31); CHLORIDE LEVEL 104 MMOL/L (98-107); CREATININE FOR GFR 0.69 MG/DL (0.55-1.30); GLOMERULAR FILTRATION RATE > 60.0 (>51); GLUCOSE, FASTING 171 MG/DL (60-100); POTASSIUM SERUM 3.9 MMOL/L (3.5-5.1); SODIUM LEVEL 142 MMOL/L (136-145); TOTAL PROTEIN 6.6 G/DL (5.7-8.2)
[2024-09-22 13:10] LABS: PROCALCITONIN 1.36 ng/ml
[2024-09-22] MEDS: ACETAMINOPHEN 325 MG TAB PO ONE (13:13)
[2024-09-22] MEDS: NS (Normal Saline) 0.9% 1,000 ML IV ONE (13:15)
[2024-09-22] MEDS: cefTRIAXone SOD 2 GM in DEXTROSE 5% (D5W) ADV/MINI-BAG 50 ML IV ONE (13:19)
[2024-09-22] MEDS: BOOSTRIX VACCINE (TETANUS/DIPHTH/ACEL. PERTUSSIS) 0.5ML SYR IM.IMMUN ONE (13:19)
[2024-09-22 13:37] LABS: APPEARANCE, URINE HAZY (CLEAR); BACTERIA, URINE AUTO NEGATIVE (NEGATIVE); BILIRUBIN, URINE AUTO NEGATIVE (NEGATIVE); BLOOD, URINE BLOOD 1+ (NEGATIVE); COLOR, URINE YELLOW (YELLOW); GLUCOSE, URINE (UA) AUTO NEGATIVE (NEGATIVE); KETONE, URINE AUTO TRACE mg/dL (NEGATIVE); LEUKOCYTE ESTERASE, URINE AUTO NEGATIVE (NEGATIVE); MUCUS, URINE SMALL (NEGATIVE); NITRITE, URINE AUTO NEGATIVE (NEGATIVE); PROTEIN, URINE AUTO 2+ mg/dL (NEGATIVE); RBC, URINE AUTO 0 /HPF (0-3); SPECIFIC GRAVITY URINE AUTO 1.026 (1.002-1.035); SQUAMOUS EPITHELIAL CELL UR AU 1 /HPF (0-6); WBC, URINE AUTO 1 /HPF (0-3)
[2024-09-22] MEDS: OSELTAMIVIR PHOSPHATE 75 MG CAP PO ONE (13:45)
[2024-09-22] MEDS: DOXYCYCLINE HYCLATE 100 MG in DEXTROSE 5% (D5W) MINI-BAG PLU 100 ML IV ONE (13:53)
[2024-09-22] MEDS: NS 0.9% IV ONE (15:00)
[2024-09-22] MEDS: [UNRECOGNIZED DRUG - OTHER] IV ONE (15:00)
[2024-09-22] MEDS ORDERED: ISOVUE-370 76% 100ML VIAL As Ordered ONE (17:14)
[2024-09-22 18:29] LABS: HEMATOCRIT 34.3 % (36.0-47.0)
[2024-09-22 18:36] LABS: HEMOGLOBIN 11.1 g/dl (12.0-15.5)
[2024-09-22] MEDS ORDERED: GABA-284 PO (18:40)
[2024-09-22] MEDS ORDERED: MULT-40 PO (18:40)
[2024-09-22] MEDS ORDERED: FERR32TA PO (18:40)
[2024-09-22] MEDS ORDERED: CALC600C3 PO (18:41)
[2024-09-22] MEDS ORDERED: HOME MED LIST COMPLETE! XX SCH (18:45)
[2024-09-22] MEDS ORDERED: MAALOX 30 ML SUSP *UDC PO PRN (20:25)
[2024-09-22] MEDS ORDERED: CEPACOL LOZENGE MT PRN (20:25)
[2024-09-22] MEDS ORDERED: MOM 30ML SUSPENSION UDC PO PRN (20:25)
[2024-09-22] MEDS ORDERED: ACETAMINOPHEN 325 MG TAB PO PRN (20:25)
[2024-09-22] MEDS: GABAPENTIN 400MG CAP PO SCH (21:05)
[2024-09-22] MEDS: DOCUSATE SODIUM 100MG CAPSULE PO SCH (21:06)
[2024-09-22] MEDS: PANTOPRAZOLE 40MG VIAL IV SCH (21:06)
[2024-09-22] MEDS: traMADol 50 MG TAB PO SCH (21:06)
[2024-09-22] MEDS: guaiFENesin ER TABLET 600 MG TAB PO SCH (21:06)
[2024-09-22 22:53] VITALS: BP 119/61; TEMP 98.1; O2SAT 97
[2024-09-23] VITALS (12 sets, daily range): BP systolic 96–114; BP diastolic 53–68; TEMP 97.2–98.4; O2SAT 92–98
[2024-09-23] MEDS: IPRATROPIUM 0.5MG/ALBUTEROL 2.5MG INH SOL UD 3ML (DUONEB) INH SCH (01:09)
[2024-09-23 07:46] LABS: PROCALCITONIN 2.13 ng/ml
[2024-09-23 07:48] LABS: ALBUMIN 2.4 G/DL (3.2-5.2); ALKALINE PHOSPHATASE 52 U/L (35-104); ALT/SGPT 376 U/L (7.0-40); AST/SGOT 614 U/L (<34); BILIRUBIN,TOTAL 0.2 MG/DL (0.3-1.2); BLOOD UREA NITROGEN 15 MG/DL (9-23); CARBON DIOXIDE LEVEL 24 MMOL/L (20-31); CHLORIDE LEVEL 112 MMOL/L (98-107); CREATININE FOR GFR 0.49 MG/DL (0.55-1.30); GLOMERULAR FILTRATION RATE > 60.0 (>51); GLUCOSE, FASTING 95 MG/DL (60-100); MAGNESIUM LEVEL 1.6 MG/DL (1.8-2.4); POTASSIUM SERUM 3.8 MMOL/L (3.5-5.1); SODIUM LEVEL 145 MMOL/L (136-145); TOTAL PROTEIN 4.9 G/DL (5.7-8.2)
[2024-09-23] MEDS: MIDODRINE 5 MG TAB PO ONE (08:31)
[2024-09-23] MEDS: LR 1,000 ML IV ONE (08:32)
[2024-09-23] MEDS: CYANOCOBALAMIN 500 MCG TAB PO SCH (08:32)
[2024-09-23] MEDS: OSELTAMIVIR PHOSPHATE 75 MG CAP PO SCH (08:32)
[2024-09-23] MEDS: DOXYCYCLINE HYCLATE 100 MG in DEXTROSE 5% (D5W) MINI-BAG PLU 100 ML IV SCH (08:32)
[2024-09-23] MEDS: cefTRIAXone SOD 1 GM in DEXTROSE 5% (D5W) ADV/MINI-BAG 50 ML IV SCH (11:03)
[2024-09-23] MEDS: MAG SULF 1GM/100ML (MAG RUN) 1 GM in IV 1 EA IV ONE (12:45)
[2024-09-23 12:53] LABS: HEMATOCRIT 30.8 % (36.0-47.0); HEMOGLOBIN 9.9 g/dl (12.0-15.5)
[2024-09-23 18:04] LABS: HEMATOCRIT 32.3 % (36.0-47.0); HEMOGLOBIN 10.3 g/dl (12.0-15.5)
[2024-09-23] MEDS: DOXYCYCLINE HYCLATE 100MG TABLET PO SCH (21:52)
[2024-09-23] MEDS: MAGNESIUM OXIDE 400MG TAB (MAG-OX) PO SCH (21:52)
[2024-09-24] VITALS (9 sets, daily range): BP systolic 105–132; BP diastolic 53–74; TEMP 97.2–98.1; O2SAT 92–96
[2024-09-24 00:02] LABS: HEMOGLOBIN 10.5 g/dl (12.0-15.5)
[2024-09-24 10:22] LABS: ALBUMIN 2.6 G/DL (3.2-5.2); ALKALINE PHOSPHATASE 64 U/L (35-104); ALT/SGPT 324 U/L (7.0-40); AST/SGOT 372 U/L (<34); BILIRUBIN,TOTAL 0.2 MG/DL (0.3-1.2); BLOOD UREA NITROGEN 12 MG/DL (9-23); CARBON DIOXIDE LEVEL 26 MMOL/L (20-31); CHLORIDE LEVEL 111 MMOL/L (98-107); CREATININE FOR GFR 0.44 MG/DL (0.55-1.30); GLOMERULAR FILTRATION RATE > 60.0 (>51); GLUCOSE, FASTING 91 MG/DL (60-100); POTASSIUM SERUM 3.8 MMOL/L (3.5-5.1); SODIUM LEVEL 144 MMOL/L (136-145); TOTAL PROTEIN 5.5 G/DL (5.7-8.2)
[2024-09-24] MEDS ORDERED: BACI1CAP PO (10:37)
[2024-09-24] MEDS ORDERED: DOXY100C3 PO (10:37)
[2024-09-24] MEDS ORDERED: CEFD300CAP PO (10:37)
== END 2024-09-24 12:26 | disposition home or self-care (01) | DRG 871 ==
LOC: M ED 11:03 → EDBD 11:03 → M ED INP 20:25 → M PCU 22:44
PROVIDERS: ADMIT Student in an Organized Health Care Education/Training Program; ATTEND General Practice
DX: A41.9 Sepsis, unspecified organism (principal); J18.1 Lobar pneumonia, unspecified organism; J10.00 Influenza due to other identified influenza virus with unspecified type of pneumonia; S06.330A Contusion and laceration of cerebrum, unspecified, without loss of consciousness, initial encounter; S06.6X0A Traumatic subarachnoid hemorrhage without loss of consciousness, initial encounter; S36.113A Laceration of liver, unspecified degree, initial encounter; E86.0 Dehydration; R55 Syncope and collapse; S01.81XA Laceration without foreign body of other part of head, initial encounter; W19.XXXA Unspecified fall, initial encounter; Y92.000 Kitchen of unspecified non-institutional (private) residence as the place of occurrence of the external cause; R74.01 Elevation of levels of liver transaminase levels; K21.9 Gastro-esophageal reflux disease without esophagitis; F32.A Depression, unspecified; F41.9 Anxiety disorder, unspecified; M54.2 Cervicalgia; I95.9 Hypotension, unspecified; K27.9 Peptic ulcer, site unspecified, unspecified as acute or chronic, without hemorrhage or perforation; D64.9 Anemia, unspecified; Z98.84 Bariatric surgery status; Z79.899 Other long term (current) drug therapy

== ENCOUNTER → 2024-10-24 | Outpatient (REF) | payer OTHER ==
[~2024-10-24] MED LIST changes: +BACI1CAP PO; +CALC600C3 PO; +CEFD300CAP PO; +DOXY100C3 PO; +FERR32TA PO; +GABA-284 PO; +MULT-40 PO
== END ==
LOC: M LAB REF 17:12
PROVIDERS: ATTEND Physician Assistant
DX: R30.0 Dysuria (principal)

== ENCOUNTER 2025-02-20 11:26 | Day surgery (SDC) | payer OTHER ==
[~2025-02-20] VITALS: Ht 156.2 cm; Wt 68.6 kg
[~2025-02-20 11:26] MED LIST changes: +ACET-897 PO; +CALC500T68 PO; +CHOL100012 PO; +ESTR62CR; +PREG-35 PO; -PREG100CA PO
[2025-02-20] MEDS ORDERED: FERR324T21 PO (12:02)
[2025-02-20] MEDS ORDERED: LIDOCAINE 2% 100 MG/5 ML SDV (FOR ANES.) As Ordered ONE (12:28)
[2025-02-20 12:57] VITALS: TEMP 97.5
[2025-02-20 13:20] VITALS: BP 137/72; O2SAT 100
== END 2025-02-20 13:45 | disposition home or self-care (01) ==
LOC: M OPP 11:26
PROVIDERS: ATTEND Internal Medicine Gastroenterology
DX: Z12.11 Encounter for screening for malignant neoplasm of colon (principal); K64.0 First degree hemorrhoids; K57.30 Diverticulosis of large intestine without perforation or abscess without bleeding; G47.30 Sleep apnea, unspecified; Z79.891 Long term (current) use of opiate analgesic; Z79.899 Other long term (current) drug therapy; Z98.84 Bariatric surgery status